=== PATIENT | male | born 1970 | race Caucasian/White ===

== ENCOUNTER 2017-12-01 16:35 | Inpatient (IN) | payer MEDICAID, MEDICARE ==
[~2017-12-01] VITALS: Ht 170.2 cm; Wt 98.0 kg
[2017-12-01 16:37] VITALS: BP 95/54; PULSE 112; RESP 25; TEMP 99.1; O2SAT 99
[2017-12-01] MEDS ORDERED: DIVA500T PO (17:22)
[2017-12-01] MEDS ORDERED: FISHCAP4 PO (17:22)
[2017-12-01] MEDS ORDERED: LOVA40TA PO (17:22)
[2017-12-01] MEDS ORDERED: RISP1TAB2 PO (17:22)
[2017-12-01] MEDS ORDERED: METF1000 PO (17:22)
[2017-12-01] MEDS ORDERED: DULO1CAP3 PO (17:22)
[2017-12-01] MEDS ORDERED: CENTTAB11 (17:22)
[2017-12-01] MEDS ORDERED: DICL1CAP4 PO (17:22)
[2017-12-01] MEDS ORDERED: TRAZ100T10 PO (17:22)
[2017-12-01] MEDS ORDERED: FENO160T PO (17:22)
[2017-12-01] MEDS ORDERED: SODIUM CHLOR 0.9% 1000 ML INJ 1,000 ML IV SCH ×2 (17:22→19:15)
[2017-12-01 17:25] VITALS: O2SAT 97
[2017-12-01] MEDS ORDERED: SODIUM CHLOR 0.9% 1000 ML INJ 1,000 ML IV ONE (17:30)
[2017-12-01] MEDS ORDERED: SODIUM CHLORIDE 0.9% FLUSH 10 ML FLUSH IV FLUSH PRN ×2 (17:30→19:30)
--- NOTE | 2017-12-01 17:30 | PD ---
Physical Exam Date Seen by Provider: Dec 01, 2017 Narrative Patient presents for the evaluation of a syncopal event, blow to the head and nausea and vomiting. He was reportedly out drinking with his friends until 5: 00 this morning. He did fall and strike his head. Since then, he has had persistent vomiting. He has a family member here with him he states that she took his blood pressure at home and noted below. She did attempt to treat him at home with oral hydration. He was unable to tolerate that. She subsequently brought him here for further evaluation. Data Data Last Documented VS Vital Signs Date Time Temp Pulse Resp B/P (MAP) Pulse Ox O2 Delivery O2 Flow Rate FiO2 12/01/17 17:25 97 Nasal Cannula 2.00 12/01/17 17:23 18 12/01/17 16:37 99.1 112 95/54 (68) Orders Orders Ct Brain W/O Iv Contrast(Rout) (12/01/17 ) Electrocardiogram (12/01/17 ) Electrocardiogram (12/01/17 17:22) Complete Blood Count With Diff (12/01/17 17:22) Comprehensive Metabolic Panel (12/01/17 17:22) Creatine Kinase (Cpk) (12/01/17 17:22) Prothrombin Time / Inr (Pt) (12/01/17 17:22) Act Partial Throm Time (Ptt) (12/01/17 17:22) Troponin I (12/01/17 17:22) Chest, Single Ap (12/01/17 17:22) Blood Glucose (12/01/17 17:22) Ecg Monitoring (12/01/17 17:22) Iv Access Insert/Monitor (12/01/17 17:22) Oximetry (12/01/17 17:22) Sodium Chloride 0.9% Flush (Ns Flush) (12/01/17 17:30) Sodium Chlor 0.9% 1000 Ml Inj (Ns 1000 M (12/01/17 17:22) Sodium Chlor 0.9% 1000 Ml Inj (Ns 1000 M (12/01/17 17:30) MDM Supervised Visit with DARRYL: Yes Interpretation(s) EKG shows a sinus tach with ventricular rate of 103. I do not see any significant ST segment elevation. Narrative Course I, Dr. Sapp, have reviewed the advance practice practitioner's documentation and am in agreement, met with the patient face to face, made the diagnosis, and the medical decision making was done by me. *My assessment and Findings: Patient is awake and alert. Systolic blood pressure is about 90. He does not have any obvious injury to his head such as a contusion or laceration. He is being evaluated for both syncope and head injury. He is being treated with IV fluids. Please see Faboila Matson NP's note for results of laboratory and radiographic evaluation, ED course, final diagnosis and disposition Yaa Sapp MD Dec 01, 2017 17:30
--- NOTE | 2017-12-01 17:37 | PD ---
HPI Chief Complaint: Syncope/Near-Syncope Time Seen by Provider: 17:22 Travel History International Travel<30 days: No Contact w/Intl Traveler<30days: No Traveled to known affect area: No History of Present Illness HPI Patient is a 47-year-old male presenting to the emergency department for evaluation after syncopal episode. Episode occurred approximately 1 hour prior to arrival. Significant other is at bedside and states that she noticed that he was laying on the ground next to the car. She reported that she checked his blood pressure at home and his systolic was in the 60s. Patient reports that prior to passing ago he felt his vision gets very bright and he felt dizzy. He denies any headache, chest pain, shortness of breath. After the episode he vomited, felt disoriented and girlfriend states he was asking the same question repetitively. Patient admits to drinking alcohol all night until approximately 5 AM. He states that he felt well prior to that. He has a history of bipolar disorder, type 2 diabetes, hyperlipidemia. He is a tobacco user, he states he smokes cigars. Symptom onset was sudden, symptoms severity is moderate to severe, there are no alleviating factors. PFSH Past Medical History High Cholesterol: Yes Diabetes: Yes Social History Alcohol Use: Yes Tobacco Use: Yes Allergies-Medications (Allergen,Severity, Reaction): Coded Allergies: Penicillins (Verified Allergy, Severe, 12/01/17) Reported Meds & Prescriptions Reported Meds & Active Scripts Active Reported Zorvolex (Diclofenac) 35 Mg Cap 75 Mg PO DAILY Trazodone (Trazodone HCl) 100 Mg Tablet 100 Mg PO HS Duloxetine DR (Duloxetine HCl) 60 Mg Capdr 60 Mg PO DAILY Lovastatin 40 Mg Tab 40 Mg PO DAILY Fenofibrate 160 Mg Tab 160 Mg PO DAILY Risperidone 1 Mg Tab 1 Mg PO DAILY Divalproex DR (Divalproex Sodium) 500 Mg Tabdr 500 Mg PO BID Metformin (Metformin HCl) 1,000 Mg Tab 1,000 Mg PO BIDPC Centrum Complete Multivit Tab (Multivitamin/Iron/Folic Acid) 18 Mg Iron-400 Mcg Tablet Fish Oil + D3 (Fish Oil-Cholecalciferol) 1,200-1,000 Mg-Unit Cap 1 Cap PO DAILY Review of Systems Except as stated in HPI: all other systems reviewed are Neg Eyes: Positive: Blurred Vision HENT: Positive: Headaches Cardiovascular: No: Chest Pain or Discomfort Respiratory: No: Shortness of Breath Gastrointestinal: Positive: Nausea, Vomiting, No: Abdominal Pain Neurologic: Positive: Dizziness, Syncope, No: Coordination Problem, Slurred Speech Physical Exam Narrative GENERAL: Overweight, well-developed, alert male. Presenting in no acute distress. SKIN: Warm and dry. HEAD: Atraumatic. Normocephalic. EYES: Pupils equal and round. No scleral icterus. No injection or drainage. Extraocular movements are intact. ENT: No nasal bleeding or discharge. Mucous membranes pink and moist. NECK: Trachea midline. No JVD. CARDIOVASCULAR: Tachycardic RESPIRATORY: No accessory muscle use. Expiratory wheezes noted in bases bilaterally. GASTROINTESTINAL: Abdomen soft, non-tender, nondistended. Hepatic and splenic margins not palpable. Positive bowel sounds, no rebound, no guarding. MUSCULOSKELETAL: Extremities without clubbing, cyanosis, or edema. No obvious deformities. NEUROLOGICAL: Awake and alert. No obvious cranial nerve deficits. Motor grossly within normal limits. Five out of 5 muscle strength in the arms and legs. Normal speech. PSYCHIATRIC: Appropriate mood and affect; insight and judgment normal. Data Data Last Documented VS Vital Signs Date Time Temp Pulse Resp B/P (MAP) Pulse Ox O2 Delivery O2 Flow Rate FiO2 12/01/17 18:26 106 18 104/53 (70) 97 18 94/50 (65) 12/01/17 17:25 97 Nasal Cannula 2.00 12/01/17 16:[address] Brain W/O Iv Contrast(Rout) (12/01/17 ) Electrocardiogram (12/01/17 ) Electrocardiogram (12/01/17 17:) Complete Blood Count With Diff (12/01/17 17:) Comprehensive Metabolic Panel (12/01/17 17:) Creatine Kinase (Cpk) (12/01/17 17:22) Prothrombin Time / Inr (Pt) (12/01/17 17:) Act Partial Throm Time (Ptt) (12/01/17 17:) Troponin I (12/01/17 17:) Chest, Single Ap (12/01/17 17:22) Blood Glucose (12/01/17 17:22) Ecg Monitoring (12/01/17 17:) Iv Access Insert/Monitor (12/01/17 17:22) Oximetry (12/01/17 17:22) Sodium Chloride 0.9% Flush (Ns Flush) (12/01/17 17:30) Sodium Chlor 0.9% 1000 Ml Inj (Ns 1000 M (12/01/17 17:22) Sodium Chlor 0.9% 1000 Ml Inj (Ns 1000 M (12/01/17 17:30) Orthostatic Vital Signs (12/01/17 18:04) CKMB (12/01/17 17:32) CKMB% (12/01/17 17:32) Sodium Chlor 0.9% 1000 Ml Inj (Ns 1000 M (12/01/17 19:15) Admit Order (Ed Use Only) (12/01/17 19:20) Labs Laboratory Tests Test 12/01/17 17:32 White Blood Count 13.9 TH/MM3 Red Blood Count 3.99 MIL/MM3 Hemoglobin 13.1 GM/DL Hematocrit 36.2 % Mean Corpuscular Volume 90.6 FL Mean Corpuscular Hemoglobin 32.8 PG Mean Corpuscular Hemoglobin Concent 36.1 % Red Cell Distribution Width 14.0 % Platelet Count 165 TH/MM3 Mean Platelet Volume 7.6 FL Neutrophils (%) (Auto) 81.8 % Lymphocytes (%) (Auto) 7.5 % Monocytes (%) (Auto) 10.2 % Eosinophils (%) (Auto) 0.3 % Basophils (%) (Auto) 0.2 % Neutrophils # (Auto) 11.4 TH/MM3 Lymphocytes # (Auto) 1.0 TH/MM3 Monocytes # (Auto) 1.4 TH/MM3 Eosinophils # (Auto) 0.0 TH/MM3 Basophils # (Auto) 0.0 TH/MM3 CBC Comment DIFF FINAL Differential Comment Prothrombin Time 10.7 SEC Prothromb Time International Ratio 1.1 RATIO Activated Partial Thromboplast Time 26.4 SEC Blood Urea Nitrogen 6 MG/DL Creatinine 1.69 MG/DL Random Glucose 93 MG/DL Total Protein 7.4 GM/DL Albumin 3.6 GM/DL Calcium Level 8.2 MG/DL Alkaline Phosphatase 53 U/L Aspartate Amino Transf (AST/SGOT) 121 U/L Alanine Aminotransferase (ALT/SGPT) 99 U/L Total Bilirubin 1.0 MG/DL Sodium Level 112 MEQ/L Potassium Level 3.6 MEQ/L Chloride Level 72 MEQ/L Carbon Dioxide Level 21.3 MEQ/L Anion Gap 19 MEQ/L Estimat Glomerular Filtration Rate 43 ML/MIN Total Creatine Kinase 1177 U/L Creatine Kinase MB 24.6 NG/ML Creatine Kinase MB % 2.1 % Troponin I LESS THAN 0.02 NG/ML MDM Medical Decision Making Medical Screen Exam Complete: Yes Emergency Medical Condition: Yes Interpretation(s) Laboratory Tests Test 12/01/17 17:32 White Blood Count 13.9 TH/MM3 Red Blood Count 3.99 MIL/MM3 Hemoglobin 13.1 GM/DL Hematocrit 36.2 % Mean Corpuscular Volume 90.6 FL Mean Corpuscular Hemoglobin 32.8 PG Mean Corpuscular Hemoglobin Concent 36.1 % Red Cell Distribution Width 14.0 % Platelet Count 165 TH/MM3 Mean Platelet Volume 7.6 FL Neutrophils (%) (Auto) 81.8 % Lymphocytes (%) (Auto) 7.5 % Monocytes (%) (Auto) 10.2 % Eosinophils (%) (Auto) 0.3 % Basophils (%) (Auto) 0.2 % Neutrophils # (Auto) 11.4 TH/MM3 Lymphocytes # (Auto) 1.0 TH/MM3 Monocytes # (Auto) 1.4 TH/MM3 Eosinophils # (Auto) 0.0 TH/MM3 Basophils # (Auto) 0.0 TH/MM3 CBC Comment DIFF FINAL Differential Comment Prothrombin Time 10.7 SEC Prothromb Time International Ratio 1.1 RATIO Activated Partial Thromboplast Time 26.4 SEC Blood Urea Nitrogen 6 MG/DL Creatinine 1.69 MG/DL Random Glucose 93 MG/DL Total Protein 7.4 GM/DL Albumin 3.6 GM/DL Calcium Level 8.2 MG/DL Alkaline Phosphatase 53 U/L Aspartate Amino Transf (AST/SGOT) 121 U/L Alanine Aminotransferase (ALT/SGPT) 99 U/L Total Bilirubin 1.0 MG/DL Sodium Level 112 MEQ/L Potassium Level 3.6 MEQ/L Chloride Level 72 MEQ/L Carbon Dioxide Level 21.3 MEQ/L Anion Gap 19 MEQ/L Estimat Glomerular Filtration Rate 43 ML/MIN Total Creatine Kinase 1177 U/L Troponin I LESS THAN 0.02 NG/ML Vital Signs Date Time Temp Pulse Resp B/P (MAP) Pulse Ox O2 Delivery O2 Flow Rate FiO2 12/01/17 17:25 97 Nasal Cannula 2.00 12/01/17 17:23 18 96 3/11/18 16:37 99.1 112 25 95/54 (76) 99 Differential Diagnosis Contusion versus concussion versus hemorrhage versus cardiac arrhythmia versus metabolic abnormality versus dehydration versus other Narrative Course Patient presented for evaluation after syncopal episode. Patient is hypotensive on arrival. No focal deficits noted on exam. Labs and imaging ordered and pending. 2 L of IV fluids ordered. IV access established, patient placed on telemetry monitoring continuous pulse oximetry. Initial EKG which was reviewed by my attending physician shows sinus tachycardia with a rate of 103. Chest x-ray is negative for any acute abnormality Head CT shows no acute changes CBC with white blood cell count at 13.9 with left shift Chemistry with a sodium of 112, BUN and creatinine 6/1.69, anion gap 19. CK 1177, AST ALT 121/99 Patient is received a total of 2 L of IV fluids, 1/3 L at 125 mL an hour has been ordered. Patient remains hemodynamically stable at this point. He was reassessed and has no complaints. Friends and family at bedside. He was made aware of all findings. He then confessed to drinking alcohol on a daily basis. He states he has a few beers a day. Discussed with Dr. Gooden. Admit orders placed. Discontinued NS infusion to avoid correcting Na+ to quickly after discussing with Dr. Gooden. Diagnosis Primary Impression: Syncope Qualified Codes: R55 - Syncope and collapse Additional Impressions: Hyponatremia Acute renal insufficiency Rhabdomyolysis Qualified Codes: M62.82 - Rhabdomyolysis Admitting Information Admitting Physician Requests: Admit Condition: Stable Fabiola Garza Dec 01, 2017 17:37
[2017-12-01 17:43] LABS: AUTOMATED NEUTROPHIL # 11.4 TH/MM3 (1.8-7.7); BASOPHIL % 0.2 % (0.0-2.0); EOSINOPHIL % 0.3 % (0.0-4.0); HEMATOCRIT 36.2 % (39.0-51.0); HEMOGLOBIN 13.1 GM/DL (13.0-17.0); LYMPH % 7.5 % (9.0-44.0); MEAN CELL VOLUME 90.6 FL (80.0-100.0); MEAN CORPUSCULAR HEMOGLOBIN 32.8 PG (27.0-34.0); MEAN PLATELET VOLUME 7.6 FL (7.0-11.0); MONO % 10.2 % (0.0-8.0); MONOCYTE # 1.4 TH/MM3 (0-0.9); NEUT % 81.8 % (16.0-70.0); PLATELET COUNT 165 TH/MM3 (150-450); RED BLOOD COUNT 3.99 MIL/MM3 (4.50-5.90); WHITE BLOOD COUNT 13.9 TH/MM3 (4.0-11.0)
--- NOTE | 2017-12-01 17:51 | RADRPT ---
EXAM DATE/TIME: 12/01/2017 17:43 [facility] COMPARISON: No previous studies available for comparison. INDICATIONS : Fall, hit head, confused and vomiting. RADIATION DOSE: 56.35 CTDIvol (mGy) MEDICAL HISTORY : None SURGICAL HISTORY : None. ENCOUNTER: Initial ACUITY: 1 day PAIN SCALE: 0/10 LOCATION: cranial TECHNIQUE: Multiple contiguous axial images were obtained of the head. Using automated exposure control and adj ustment of the mA and/or kV according to patient size, radiation dose was kept as low as reasonably a chievable to obtain optimal diagnostic quality images. DICOM format image data is available electro nically for review and comparison. FINDINGS: CEREBRUM: The ventricles are normal for age. No evidence of midline shift, mass lesion, hemorrhage or acute in farction. No extra-axial fluid collections are seen. POSTERIOR FOSSA: The cerebellum and brainstem are intact. The 4th ventricle is midline. The cerebellopontine angle i s unremarkable. EXTRACRANIAL: The visualized portion of the orbits is intact. SKULL: The calvaria is intact. No evidence of skull fracture. CONCLUSION: 1. No acute intracranial abnormalities. Bong Bradford MD on December 01, 2017 at 17:48 Board Certified Radiologist. This report was verified electronically.
[2017-12-01 17:52] LABS: INTERNATIONAL NORMALIZED RATIO 1.1 RATIO; MEAN CORPUSCULAR HGB CONC 36.1 % (32.0-36.0); PROTHROMBIN TIME - PATIENT 10.7 SEC (9.8-11.6)
--- NOTE | 2017-12-01 17:53 | RADRPT ---
EXAM DATE/TIME: 12/01/2017 17:35 [facility] COMPARISON: No previous studies available for comparison. INDICATIONS : Syncopal episode, Short of Breath MEDICAL HISTORY : None. SURGICAL HISTORY : None. ENCOUNTER: Initial ACUITY: 1 day PAIN SCORE: 0/10 LOCATION: chest FINDINGS: A single view of the chest demonstrates the lungs to be symmetrically aerated without evidence of mas s, infiltrate or effusion. No evidence of pneumothorax. The cardiomediastinal contours are unremark able. Osseous structures are intact. CONCLUSION: The lungs are clear. John Jenkins MD on December 01, 2017 at 17:51 Board Certified Radiologist. This report was verified electronically.
[2017-12-01 18:26] VITALS: BP_SYST 104; BP_SYST 94; BP_DIAS 50; BP_DIAS 53; RESP 18
[2017-12-01 18:43] LABS: ALBUMIN 3.6 GM/DL (3.4-5.0); ALKALINE PHOSPHATASE 53 U/L (45-117); ALT (GPT) 99 U/L (12-78); AST (GOT) 121 U/L (15-37); BICARBONATE 21.3 MEQ/L (21.0-32.0); BLOOD UREA NITROGEN 6 MG/DL (7-18); CALCIUM 8.2 MG/DL (8.5-10.1); CHLORIDE 72 MEQ/L (98-107); CREATININE 1.69 MG/DL (0.60-1.30); GLOMERULAR FILTRATION RATE 43 ML/MIN (>89); GLUCOSE,RANDOM 93 MG/DL (74-106); TOTAL PROTEIN 7.4 GM/DL (6.4-8.2); TROPONIN I LESS THAN 0.02 NG/ML (0.02-0.05)
[2017-12-01 18:47] LABS: SODIUM (NA) 112 MEQ/L (136-145)
--- NOTE | 2017-12-01 19:25 | HHI.HP ---
[facility] Unknown Admission Diagnosis HYPONATREMIA, SYNCOPE, NOÉ Diagnoses: (1) Syncope Diagnosis: Principal (2) Alcohol abuse Diagnosis: Principal (3) Hyponatremia Diagnosis: Principal (4) Rhabdomyolysis Diagnosis: Principal (5) NOÉ (acute kidney injury) Diagnosis: Principal (6) DM (diabetes mellitus) Diagnosis: Principal Travel History International Travel<30 Days: No Contact w/Intl Traveler <30 Da: No Traveled to Known Affected Are: No History of Present Illness This is a 47-year-old male with a PMH of Hyperlipidemia, DM and Alcohol Abuse was brought here by EMS secondary to apparent syncopal episode. Friends at bedside report patient had sudden onset of syncope earlier today. Friends state patient had been out drinking all night last night. Similar episode approx 2 days ago where pt "was out of it" and noted to have hands clenched. Did not seek medical attention at that time. Denies h/o Seizure, however on Divalproex 500mg bid per review of med list. Does admit to drinking approx 6- 12 beers "maybe more" per day, but denies withdrawal symptoms. On arrival, BP 95/54, HR 112, O2 sat 99% on RA, Temp 99.1. CBC 13.9. Na 112. Creatinine 1.69 no previous labs for comparison. CPK 1177. Troponin negative. INR 1.1. UA negative. CXR with no acute findings. CT Head negative. S/p IVF in ER, no further episodes of syncope/seizure in ER. Review of Systems Except as stated in HPI: all other systems reviewed are Neg ROS: 14 point review of systems otherwise negative. Past Family Social History Past Medical History PMH: Hyperlipidemia, DM and Alcohol Abuse Past Surgical History PAST SURGICAL HISTORY: None Allergies: Coded Allergies: Penicillins (Verified Allergy, Severe, 12/01/17) Family History PAST FAMILY HISTORY: Reviewed. No h/o DM or CAD Social History PAST SOCIAL HISTORY: Drinks 6-12 beers daily. Positive for tobacco. Denies drugs. Physical Exam Vital Signs Vital Signs Date Time Temp Pulse Resp B/P (MAP) Pulse Ox O2 Delivery O2 Flow Rate FiO2 12/01/17 18:26 106 18 104/53 (70) 97 18 94/50 (65) 12/01/17 17:25 97 Nasal Cannula 2.00 12/01/17 17:23 78 18 96 12/01/17 16:37 99.1 112 25 95/54 (68) 99 Physical Exam PE: GENERAL: Middle-aged male in no acute distress. Friends at bedside. HEENT: PERRLA, EOMI. No scleral icterus or conjunctival pallor. No lid lag or facial droop. CARDIOVASCULAR: Regular rate and rhythm. No obvious murmurs to auscultation. No chest tenderness to palpation. RESPIRATORY: No obvious rhonchi or wheezing. Clear to auscultation. Breath sounds equal bilaterally. GASTROINTESTINAL: Abdomen soft, non-tender, nondistended. BS normal. MUSCULOSKELETAL: Extremities without clubbing, cyanosis, or edema. No obvious deformities. NEUROLOGICAL: Awake, alert and oriented x4. No focal neurologic deficits. Moving both upper and lower extremities spontaneously. Laboratory Laboratory Tests Test 12/01/17 17:32 White Blood Count 13.9 Red Blood Count 3.99 Hemoglobin 13.1 Hematocrit 36.2 Mean Corpuscular Volume 90.6 Mean Corpuscular Hemoglobin 32.8 Mean Corpuscular Hemoglobin Concent 36.1 Red Cell Distribution Width 14.0 Platelet Count 165 Mean Platelet Volume 7.6 Neutrophils (%) (Auto) 81.8 Lymphocytes (%) (Auto) 7.5 Monocytes (%) (Auto) 10.2 Eosinophils (%) (Auto) 0.3 Basophils (%) (Auto) 0.2 Neutrophils # (Auto) 11.4 Lymphocytes # (Auto) 1.0 Monocytes # (Auto) 1.4 Eosinophils # (Auto) 0.0 Basophils # (Auto) 0.0 CBC Comment DIFF FINAL Differential Comment Prothrombin Time 10.7 Prothromb Time International Ratio 1.1 Activated Partial Thromboplast Time 26.4 Blood Urea Nitrogen 6 Creatinine 1.69 Random Glucose 93 Total Protein 7.4 Albumin 3.6 Calcium Level 8.2 Alkaline Phosphatase 53 Aspartate Amino Transf (AST/SGOT) 121 Alanine Aminotransferase (ALT/SGPT) 99 Total Bilirubin 1.0 Sodium Level 112 Potassium Level 3.6 Chloride Level 72 Carbon Dioxide Level 21.3 Anion Gap 19 Estimat Glomerular Filtration Rate 43 Total Creatine Kinase 1177 Creatine Kinase MB 24.6 Creatine Kinase MB % 2.1 Troponin I LESS THAN 0.02 Result Diagram: 12/01/17173112/01/171731 Caprini VTE Risk Assessment Caprini VTE Risk Assessment: No/Low Risk (score <= 1) Caprini Risk Assessment Model Point Value = 1 Point Value = 2 Point Value = 3 Point Value = 5 Age 41-60 Minor surgery BMI > 25 kg/m2 Swollen legs Varicose veins or History of unexplained or recurrent spontaneous Oral contraceptives or hormone replacement Sepsis (< 1 month) Serious lung disease, including pneumonia (< 1 month) Abnormal pulmonary function Acute myocardial infarction Congestive heart failure (< 1 month) History of inflammatory bowel disease Medical patient at bed rest Age 61-74 Arthroscopic surgery Major open surgery (> 45 min) Laparoscopic surgery (> 45 min) Malignancy Confined to bed (> 72 hours) Immobilizing plaster cast Central venous access Age >= 75 History of VTE Family history of VTE Factor V Leiden Prothrombin [id number] Lupus anticoagulant Anticardiolipin antibodies Elevated serum homocysteine Heparin-induced thrombocytopenia Other congenital or acquired thrombophilia Stroke (< 1 month) Elective arthroplasty Hip, pelvis, or leg fracture Acute spinal cord injury (< 1 month) Prophylaxis Regimen Total Risk Factor Score Risk Level Prophylaxis Regimen 0-1 Low Early ambulation 2 Moderate Order ONE of the following: *Sequential Compression Device (SCD) *Heparin 5000 units SQ BID 3-4 Higher Order ONE of the following medications: *Heparin 5000 units SQ TID *Enoxaparin/Lovenox 40 mg SQ daily (WT < 150 kg, CrCl > 30 mL/min) *Enoxaparin/Lovenox 30 mg SQ daily (WT < 150 kg, CrCl > 10-29 mL/min) *Enoxaparin/Lovenox 30 mg SQ BID (WT < 150 kg, CrCl > 30 mL/min) AND/OR *Sequential Compression Device (SCD) 5 or more Highest Order ONE of the following medications: *Heparin 5000 units SQ TID (Preferred with Epidurals) *Enoxaparin/Lovenox 40 mg SQ daily (WT < 150 kg, CrCl > 30 mL/min) *Enoxaparin/Lovenox 30 mg SQ daily (WT < 150 kg, CrCl > 10-29 mL/min) *Enoxaparin/Lovenox 30 mg SQ BID (WT < 150 kg, CrCl > 30 mL/min) AND *Sequential Compression Device (SCD) Assessment and Plan Problem List: (1) Syncope ICD Code: R55 - Syncope and collapse Status: Acute (2) Hyponatremia ICD Code: E87.1 - Hypo-osmolality and hyponatremia Status: Acute (3) Rhabdomyolysis ICD Code: M62.82 - Rhabdomyolysis Status: Acute (4) NOÉ (acute kidney injury) ICD Code: N17.9 - Acute kidney failure, unspecified (5) DM (diabetes mellitus) ICD Code: E11.9 - Type 2 diabetes mellitus without complications (6) Alcohol abuse ICD Code: F10.10 - Alcohol abuse, uncomplicated Assessment and Plan A/P: 1. Syncope: vs Seizure. Noted to have syncopal event and questionable seizure -like activity by friends. Denies h/o seizure however on Divalproex per review of medication list. Admit for close monitoring, Seizure Precautions, Ativan prn , Consult Neurology as needed for further recommendations. CT Head w/ no acute findings, images reviewed by me. Ordered Urine Drug Screen....positive for Cocaine, likely contributing to seizure in combination w/ hyponatremia. Check EEG. Resume Divalproex 500mg bid. 2. Hyponatremia: Na 112, baseline unknown, h/o chronic alcohol abuse likely contributing to hyponatremia in addition to dehydration. S/p 2L IVF in ER, caution w/ over correction, check repeat Sodium, Serum Osm, Urine Lytes. 3. Rhabdomyolysis: CPK 1177, likely secondary to Cocaine. IVF for hydration, repeat CPK for trend. 4. NOÉ: Creatinine 1.69, no previous labs for comparison, presumably new, likely secondary to dehydration in combination with Cocaine. IVF for hydration , repeat labs in a.m. 5. Alcohol Abuse: Drinks 6-12 beers/day, denies withdrawal symptoms but high risk. CIWA, Seizure Precautions, MVT/Thiamine/Folate. 6. DM: Hold Metformin for now. Sliding scale w/ Accu-Checks. 7. DVT Prophylaxis: SCD/Teds. 8. Social work for d/c planning as needed. 9. Case discussed w/ ER physician at length, labs/records/imaging reviewed by me. Physician Certification 2 Midnight Certification Type: Admission for Inpatient Services Order for Inpatient Services The services are ordered in accordance with Medicare regulations or non- Medicare payer requirements, as applicable. In the case of services not specified as inpatient-only, they are appropriately provided as inpatient services in accordance with the 2-midnight benchmark. Estimated LOS (days): 2 days is the estimated time the patient will need to remain in the hospital, assuming treatment plan goals are met and no additional complications. Post-Hospital Plan: Not yet determined Problem Qualifiers (1) Syncope: Qualified Codes: R55 - Syncope and collapse (2) Rhabdomyolysis: Qualified Codes: M62.82 - Rhabdomyolysis Purnima Gooden MD Dec 01, 2017 19:25
[2017-12-01] MEDS ORDERED: LORazepam 2 MG/ML VIAL IV PUSH PRN ×4 (19:30)
[2017-12-01] MEDS ORDERED: LORazepam 1 MG TAB PO PRN (19:30)
[2017-12-01] MEDS ORDERED: ACETAMINOPHEN 325 MG TAB PO PRN (19:30)
[2017-12-01] MEDS ORDERED: BISACODYL 10 MG SUPP RECTAL PRN (19:30)
[2017-12-01] MEDS ORDERED: LACTULOSE SYRUP 20 GM/30 ML CUP PO PRN (19:30)
[2017-12-01] MEDS ORDERED: MAGNESIUM HYDROXIDE SUSP 30 ML CUP PO PRN (19:30)
[2017-12-01] MEDS ORDERED: FLUMAZENIL 0.5 MG/5 ML VIAL IV PUSH PRN (19:30)
[2017-12-01] MEDS ORDERED: HALOPERIDOL LACTATE 5 MG/ML AMP IM PRN (19:30)
[2017-12-01] MEDS ORDERED: LORazepam 2 MG TAB PO PRN (19:30)
[2017-12-01] MEDS ORDERED: SENNOSIDES 8.6 MG TAB PO PRN (19:30)
[2017-12-01] MEDS ORDERED: ONDANSETRON HCL 4 MG/2 ML VIAL IVP PRN (19:30)
[2017-12-01] MEDS: DOCUSATE SODIUM 50 MG/SENNA 8.6 MG TAB PO SCH (21:00)
[2017-12-01 21:10] LABS: BILIRUBIN, URINE NEG (NEG); BLOOD, URINE TRACE (NEG); GLUCOSE,URINE NEG (NEG); KETONE, URINE NEG (NEG); NITRITE,URINE NEG (NEG); PH, URINE 6.5 (5.0-8.5); URINE COLOR LIGHT-YELLOW (YELLW/STRAW); URINE LEUKOCYTE ESTERASE NEG (NEG)
[2017-12-02] VITALS (8 sets, daily range): BP systolic 107–178; BP diastolic 59–83; PULSE 88–107; RESP 16–20; TEMP 97.3–98.6; O2SAT 94–96
[2017-12-02 01:14] LABS: TROPONIN I LESS THAN 0.02 NG/ML (0.02-0.05)
[2017-12-02 01:19] LABS: SODIUM (NA) 117 MEQ/L (136-145)
[2017-12-02 01:47] LABS: SODIUM,RANDOM URINE 16 MEQ/L
[2017-12-02] MEDS: SODIUM CHLOR 0.9% 1000 ML INJ 1,000 ML IV SCH ×2 (02:04→22:01)
[2017-12-02] MEDS: SODIUM CHLORIDE 0.9% FLUSH 10 ML FLUSH IV FLUSH SCH ×3 (02:05→21:00)
[2017-12-02 08:54] LABS: AUTOMATED NEUTROPHIL # 3.6 TH/MM3 (1.8-7.7); BASOPHIL % 0.2 % (0.0-2.0); EOSINOPHIL # 0.1 TH/MM3 (0-0.4); EOSINOPHIL % 1.6 % (0.0-4.0); HEMATOCRIT 33.4 % (39.0-51.0); LYMPH % 19.5 % (9.0-44.0); LYMPHOCYTE # 1.1 TH/MM3 (1.0-4.8); MEAN CELL VOLUME 91.5 FL (80.0-100.0); MEAN CORPUSCULAR HEMOGLOBIN 32.8 PG (27.0-34.0); MEAN CORPUSCULAR HGB CONC 35.8 % (32.0-36.0); MEAN PLATELET VOLUME 7.8 FL (7.0-11.0); MONO % 16.2 % (0.0-8.0); MONOCYTE # 0.9 TH/MM3 (0-0.9); NEUT % 62.5 % (16.0-70.0); PLATELET COUNT 124 TH/MM3 (150-450); RED BLOOD COUNT 3.65 MIL/MM3 (4.50-5.90); RED CELL DISTRIBUTION WIDTH 13.8 % (11.6-17.2); WHITE BLOOD COUNT 5.7 TH/MM3 (4.0-11.0)
[2017-12-02] MEDS: DOCUSATE SODIUM 50 MG/SENNA 8.6 MG TAB PO SCH ×2 (09:00→22:01)
--- NOTE | 2017-12-02 09:13 | HHI.PR ---
Subjective Remarks The patient is in bed sleepy. Has no chest pain or shortness of breath, no palpitations. No tremors. No seizures overnight. Denies abdominal cramps, muscle pain. Fairly well no nausea or vomiting diarrhea or constipation. He is drinking more now because of the bike week. Since he had sodium low before. He is alert and oriented. No confusion. Eating fairly well. Objective Vitals Vital Signs Date Time Temp Pulse Resp B/P (MAP) Pulse Ox O2 Delivery O2 Flow Rate FiO2 12/02/17 08:52 97.6 100 16 118/65 (82) 96 12/02/17 03:58 97.7 103 20 114/64 (81) 95 12/02/17 02:49 88 12/02/17 00:06 97.8 104 18 111/59 (76) 95 12/01/17 21:05 12/01/17 18:26 106 18 104/53 (70) 97 18 94/50 (65) 12/01/17 17:25 97 Nasal Cannula 2.00 12/01/17 17:23 78 18 96 12/01/17 16:37 99.1 112 25 95/54 (68) 99 Result Diagram: 12/02/17 0657 12/02/17 0002 Imaging Last Impressions Chest X-Ray 12/01/17 1722 Signed Impressions: Service Date/Time: Friday, December 01, 2017 17:35 - CONCLUSION: The lungs are clear. John Jenkins MD Head CT 12/01/17 0000 Signed Impressions: Service Date/Time: Friday, December 01, 2017 17:43 - CONCLUSION: 1. No acute intracranial abnormalities. Bong Bradford MD Objective Remarks GENERAL: Middle-aged male in no acute distress. Friends at bedside. HEENT: PERRLA, EOMI. No scleral icterus or conjunctival pallor. No lid lag or facial droop. CARDIOVASCULAR: Regular rate and rhythm. No obvious murmurs to auscultation. No chest tenderness to palpation. RESPIRATORY: No obvious rhonchi or wheezing. Clear to auscultation. Breath sounds equal bilaterally. GASTROINTESTINAL: Abdomen soft, non-tender, nondistended. BS normal. MUSCULOSKELETAL: Extremities without clubbing, cyanosis, or edema. No obvious deformities. NEUROLOGICAL: Awake, alert and oriented x4. No focal neurologic deficits. Moving both upper and lower extremities spontaneously. A/P Problem List: (1) Syncope ICD Code: R55 - Syncope and collapse Status: Acute (2) Hyponatremia ICD Code: E87.1 - Hypo-osmolality and hyponatremia Status: Acute (3) Rhabdomyolysis ICD Code: M62.82 - Rhabdomyolysis Status: Acute (4) NOÉ (acute kidney injury) ICD Code: N17.9 - Acute kidney failure, unspecified (5) DM (diabetes mellitus) ICD Code: E11.9 - Type 2 diabetes mellitus without complications (6) Alcohol abuse ICD Code: F10.10 - Alcohol abuse, uncomplicated Assessment and Plan 47-year-old male with Syncope: vs Seizure. Noted to have syncopal event and questionable seizure- like activity by friends. Denies h/o seizure however on Divalproex per review of medication list. Admit for close monitoring, Seizure Precautions, Ativan prn , Consult Neurology as needed for further recommendations. CT Head w/ no acute findings, images reviewed by me. Ordered Urine Drug Screen....positive for Cocaine, likely contributing to seizure in combination w/ hyponatremia. Check EEG. Resume Divalproex 500mg bid. Hyponatremia: Na 112 on admission, baseline unknown, h/o chronic alcohol abuse likely contributing to hyponatremia in addition to dehydration. S/p 2L IVF in ER, caution w/ over correction, check repeat Sodium, Serum Osm, Urine Lytes. Repeat NA at 117 monitor for overcorrection Rhabdomyolysis: CPK 1177, likely secondary to Cocaine. IVF for hydration, repeat CPK for trend. NOÉ: Creatinine 1.69, no previous labs for comparison, presumably new, likely secondary to dehydration in combination with Cocaine. IVF for hydration, repeat labs in a.m. Alcohol Abuse: Drinks 6-12 beers/day, denies withdrawal symptoms but high risk. CIWA, Seizure Precautions, MVT/Thiamine/Folate. DM2: Hold Metformin for now. Sliding scale w/ Accu-Checks. DVT Prophylaxis: SCD/Teds. Discussed with the patient, nurse Discharge plan: Pending improvement, monitor sodium for fast correction, monitor for alcohol withdrawals, discharge when improved Problem Qualifiers (1) Syncope: Qualified Codes: R55 - Syncope and collapse (2) Rhabdomyolysis: Qualified Codes: M62.82 - Rhabdomyolysis Cecilia Bowles MD Dec 02, 2017 09:13
[2017-12-02] MEDS: FOLIC ACID 1 MG TAB PO SCH (09:22)
[2017-12-02] MEDS: risperiDONE 1 MG TAB PO SCH (09:22)
[2017-12-02] MEDS: MULTIVITAMINS/MINERALS THERAPEUTIC TAB PO SCH (09:22)
[2017-12-02] MEDS: THIAMINE HCL 100 MG TAB PO SCH (09:22)
[2017-12-02] MEDS: DULoxetine HCl DR 60 MG CAP PO SCH (09:22)
[2017-12-02] MEDS: DIVALPROEX DR 500 MG TABEC PO SCH ×2 (09:23→22:01)
[2017-12-02 09:27] LABS: ALBUMIN 3.3 GM/DL (3.4-5.0); ALKALINE PHOSPHATASE 47 U/L (45-117); ALT (GPT) 77 U/L (12-78); AST (GOT) 78 U/L (15-37); BLOOD UREA NITROGEN 12 MG/DL (7-18); CHLORIDE 81 MEQ/L (98-107); CREATININE 1.44 MG/DL (0.60-1.30); GLOMERULAR FILTRATION RATE 52 ML/MIN (>89); GLUCOSE,RANDOM 67 MG/DL (74-106); TOTAL BILIRUBIN ADULT 1.3 MG/DL (0.2-1.0); TOTAL PROTEIN 6.7 GM/DL (6.4-8.2); TROPONIN I LESS THAN 0.02 NG/ML (0.02-0.05)
[2017-12-02 09:45] LABS: SODIUM (NA) 121 MEQ/L (136-145)
--- NOTE | 2017-12-02 13:51 | MB ---
cc: Awa Moses MD DATE OF CONSULT: 12/02/2017 DATE OF : 1970 AGE: [age] years old. REASON FOR CONSULTATION: Seizure. HISTORY OF PRESENT ILLNESS: The patient is a 47-year-old male with a history of hyperlipidemia, diabetes, chronic alcohol use who comes in with a syncopal spell. Apparently he had been drinking last night and they went to [employer]. On the way home from [employer], as he was coming home and opened the car door, he had syncope versus a seizure. He was somewhat postictal or confused afterwards. He denies any history of epilepsy and/or seizures. Apparently at some point in time he was on Depakote in the past. He does have a history of drinking 6 to 12 beers, maybe sometimes more, but no alcohol withdrawal symptoms were ever noted. ALLERGIES: PENICILLIN. FAMILY HISTORY: Noncontributory. SOCIAL HISTORY: Drinks heavily daily. Smokes. Denies drugs per chart. PHYSICAL EXAMINATION: VITAL SIGNS: Temperature 98.6, heart rate 107, respiratory rate 18, blood pressure 126/66, sating at 96%. NECK: Supple. HEART: Regular. NEUROLOGICAL EXAMINATION: He is awake and alert. He is oriented and fluent. Pupils are reactive. Face symmetrical. Tongue in midline. Motor: I do not see any tremors. No drift, no leg lag. Cerebellar: Normal. Toes downgoing. DTRs: Symmetrical. Gait is withheld. LABORATORY DATA: Reviewed. His white count yesterday was 13.9, today is 5.7, hemoglobin 12, platelets 124,000. Chemistries: Sodium was 112 yesterday, currently is up to 121. BUN of 12, creatinine 1.44, GFR 52, glucose 67, osmolarity 0.242, total bili is 1.3. AST 78, ALT 77. CK was 1177 yesterday, now is 880. Albumin 3.3. Toxicology positive for cocaine. Urine: Trace blood. IMAGING STUDIES: CT head unremarkable for anything acute. IMPRESSION: Syncope versus seizure; however, like a contributing factor may have been the hyponatremia. Does have rhabdomyolysis. RECOMMENDATIONS: Recommend EEG if not done. He can continue his Depakote. I have no problem with that, 500 mg twice per day. I am not sure if he will take it but he is not to drive for six months in any case. Cocaine positive may have also been a culprit in some of his symptoms. His hyponatremia needs to be corrected slowly, avoiding over-correction. Hydration also due to CPK elevation. We will continue current care, watch him for any seizures. I would also watch him for any alcohol withdrawal. I would put him on thiamine, folic acid, multivitamins and if needed start him on Librium. Continue current care. Hopefully discharge planning in the next 24 hours. Awa Moses MD DF/ROBYN , 01:32 PM , 01:49 PM
--- NOTE | 2017-12-02 18:16 | EKG ---
Date Performed: 12/01/2017 Time Performed: 17:24:55 PTAGE: 47 years EKG: SINUS TACHYCARDIA ABNORMAL RHYTHM ECG NO PREVIOUS TRACING DOCTOR: Marcelina Wise Interpretating Date/Time 12/02/2017 18:12:21
[2017-12-03] VITALS (7 sets, daily range): BP systolic 14–118; BP diastolic 62–71; PULSE 67–101; RESP 16–18; TEMP 97.8–98.4; O2SAT 96–97
[2017-12-03 04:28] LABS: AUTOMATED NEUTROPHIL # 3.8 TH/MM3 (1.8-7.7); BASOPHIL % 0.3 % (0.0-2.0); EOSINOPHIL # 0.1 TH/MM3 (0-0.4); EOSINOPHIL % 1.4 % (0.0-4.0); HEMATOCRIT 33.9 % (39.0-51.0); HEMOGLOBIN 11.9 GM/DL (13.0-17.0); LYMPH % 17.7 % (9.0-44.0); MEAN CELL VOLUME 93.2 FL (80.0-100.0); MEAN CORPUSCULAR HEMOGLOBIN 32.8 PG (27.0-34.0); MEAN CORPUSCULAR HGB CONC 35.2 % (32.0-36.0); MEAN PLATELET VOLUME 7.3 FL (7.0-11.0); MONO % 16.1 % (0.0-8.0); MONOCYTE # 0.9 TH/MM3 (0-0.9); NEUT % 64.5 % (16.0-70.0); PLATELET COUNT 122 TH/MM3 (150-450); RED BLOOD COUNT 3.64 MIL/MM3 (4.50-5.90); RED CELL DISTRIBUTION WIDTH 13.9 % (11.6-17.2); WHITE BLOOD COUNT 5.8 TH/MM3 (4.0-11.0)
[2017-12-03 05:01] LABS: BICARBONATE 29.3 MEQ/L (21.0-32.0); CALCIUM 9.2 MG/DL (8.5-10.1); CREATININE 1.24 MG/DL (0.60-1.30)
[2017-12-03] MEDS: THIAMINE HCL 100 MG TAB PO SCH (08:05)
[2017-12-03] MEDS: MULTIVITAMINS/MINERALS THERAPEUTIC TAB PO SCH (08:05)
[2017-12-03] MEDS: DIVALPROEX DR 500 MG TABEC PO SCH (08:05)
[2017-12-03] MEDS: risperiDONE 1 MG TAB PO SCH (08:05)
[2017-12-03] MEDS: DULoxetine HCl DR 60 MG CAP PO SCH (08:05)
[2017-12-03] MEDS: FOLIC ACID 1 MG TAB PO SCH (08:05)
[2017-12-03] MEDS: SODIUM CHLORIDE 0.9% FLUSH 10 ML FLUSH IV FLUSH SCH (08:06)
[2017-12-03] MEDS: DOCUSATE SODIUM 50 MG/SENNA 8.6 MG TAB PO SCH (08:07)
--- NOTE | 2017-12-03 09:25 | HHI.DS ---
Discharge Summary Admission Date Dec 01, 2017 at 19:22 Discharge Date: Dec 03, 2017 Admitting Diagnosis HYPONATREMIA, SYNCOPE, NOÉ (1) Syncope ICD Code: R55 - Syncope and collapse Status: Acute (2) Hyponatremia ICD Code: E87.1 - Hypo-osmolality and hyponatremia Status: Acute (3) Rhabdomyolysis ICD Code: M62.82 - Rhabdomyolysis Status: Acute (4) NOÉ (acute kidney injury) ICD Code: N17.9 - Acute kidney failure, unspecified (5) DM (diabetes mellitus) ICD Code: E11.9 - Type 2 diabetes mellitus without complications (6) Alcohol abuse ICD Code: F10.10 - Alcohol abuse, uncomplicated Procedures none Brief History - From Admission This is a 47-year-old male with a PMH of Hyperlipidemia, DM and Alcohol Abuse was brought here by EMS secondary to apparent syncopal episode. Friends at bedside report patient had sudden onset of syncope earlier today. Friends state patient had been out drinking all night last night. Similar episode approx 2 days ago where pt "was out of it" and noted to have hands clenched. Did not seek medical attention at that time. Denies h/o Seizure, however on Divalproex 500mg bid per review of med list. Does admit to drinking approx 6- 12 beers "maybe more" per day, but denies withdrawal symptoms. On arrival, BP 95/54, HR 112, O2 sat 99% on RA, Temp 99.1. CBC 13.9. Na 112. Creatinine 1.69 no previous labs for comparison. CPK 1177. Troponin negative. INR 1.1. UA negative. CXR with no acute findings. CT Head negative. S/p IVF in ER, no further episodes of syncope/seizure in ER. CBC/BMP: 12/03/17 0411 12/03/17 0411 Significant Findings Laboratory Tests Test 12/01/17 17:32 12/01/17 19:50 12/02/17 00:02 12/02/17 06:57 White Blood Count 13.9 TH/MM3 (4.0-11.0) Red Blood Count 3.99 MIL/MM3 (4.50-5.90) 3.65 MIL/MM3 (4.50-5.90) Hematocrit 36.2 % (39.0-51.0) 33.4 % (39.0-51.0) Mean Corpuscular Hemoglobin Concent 36.1 % (32.0-36.0) Neutrophils (%) (Auto) 81.8 % (16.0-70.0) Lymphocytes (%) (Auto) 7.5 % (9.0-44.0) Monocytes (%) (Auto) 10.2 % (0.0-8.0) 16.2 % (0.0-8.0) Neutrophils # (Auto) 11.4 TH/MM3 (1.8-7.7) Monocytes # (Auto) 1.4 TH/MM3 (0-0.9) Blood Urea Nitrogen 6 MG/DL (7-18) Creatinine 1.69 MG/DL (0.60-1.30) 1.44 MG/DL (0.60-1.30) Calcium Level 8.2 MG/DL (8.5-10.1) 8.0 MG/DL (8.5-10.1) Aspartate Amino Transf (AST/SGOT) 121 U/L (15-37) 78 U/L (15-37) Alanine Aminotransferase (ALT/SGPT) 99 U/L (12-78) Sodium Level 112 MEQ/L (136-145) 117 MEQ/L (136-145) 121 MEQ/L (136-145) Chloride Level 72 MEQ/L (98-107) 81 MEQ/L (98-107) Anion Gap 19 MEQ/L (5-15) Estimat Glomerular Filtration Rate 43 ML/MIN (>89) 52 ML/MIN (>89) Total Creatine Kinase 1177 U/L (39-308) 1040 U/L (39-308) 880 U/L (39-308) Creatine Kinase MB 24.6 NG/ML (0.5-3.6) 19.5 NG/ML (0.5-3.6) 15.6 NG/ML (0.5-3.6) Troponin I LESS THAN 0.02 NG/ML LESS THAN 0.02 NG/ML LESS THAN 0.02 NG/ML Urine Occult Blood TRACE (NEG) Urine Cocaine Screen POS (NEG) Serum Osmolality 242 MOSM/KG (275-295) Hemoglobin 12.0 GM/DL (13.0-17.0) Platelet Count 124 TH/MM3 (150-450) Random Glucose 67 MG/DL (74-106) Albumin 3.3 GM/DL (3.4-5.0) Total Bilirubin 1.3 MG/DL (0.2-1.0) Test 12/02/17 15:27 12/02/17 20:51 12/03/17 04:11 Sodium Level 123 MEQ/L (136-145) 128 MEQ/L (136-145) 131 MEQ/L (136-145) Red Blood Count 3.64 MIL/MM3 (4.50-5.90) Hemoglobin 11.9 GM/DL (13.0-17.0) Hematocrit 33.9 % (39.0-51.0) Platelet Count 122 TH/MM3 (150-450) Monocytes (%) (Auto) 16.1 % (0.0-8.0) Chloride Level 92 MEQ/L (98-107) Estimat Glomerular Filtration Rate 62 ML/MIN (>89) Imaging Last Impressions Chest X-Ray 12/01/17 1722 Signed Impressions: Service Date/Time: Friday, December 01, 2017 17:35 - CONCLUSION: The lungs are clear. John Jenkins MD Head CT 12/01/17 0000 Signed Impressions: Service Date/Time: Friday, December 01, 2017 17:43 - CONCLUSION: 1. No acute intracranial abnormalities. Bong Bradford MD PE at Discharge GENERAL: Middle-aged male in no acute distress. Friends at bedside. HEENT: PERRLA, EOMI. No scleral icterus or conjunctival pallor. No lid lag or facial droop. CARDIOVASCULAR: Regular rate and rhythm. No obvious murmurs to auscultation. No chest tenderness to palpation. RESPIRATORY: No obvious rhonchi or wheezing. Clear to auscultation. Breath sounds equal bilaterally. GASTROINTESTINAL: Abdomen soft, non-tender, nondistended. BS normal. MUSCULOSKELETAL: Extremities without clubbing, cyanosis, or edema. No obvious deformities. NEUROLOGICAL: Awake, alert and oriented x4. No focal neurologic deficits. Moving both upper and lower extremities spontaneously. Pt update on day of discharge In nad. feels better. Eating well. No seizures, no muscle pain or cramps. No n/v /d/c. feels comfortable to go home Hospital Course 47-year-old male with Syncope: vs Seizure. Noted to have syncopal event and questionable seizure- like activity by friends. Denies h/o seizure however on Divalproex per review of medication list. Admit for close monitoring, Seizure Precautions, Ativan prn , Consult Neurology as needed for further recommendations. CT Head w/ no acute findings, images reviewed by me. Ordered Urine Drug Screen....positive for Cocaine, likely contributing to seizure in combination w/ hyponatremia. EEG is normal. Resume Divalproex 500mg bid. Hyponatremia: Na 112 on admission, baseline unknown, h/o chronic alcohol abuse likely contributing to hyponatremia in addition to dehydration. S/p 2L IVF in ER, caution w/ over correction, check repeat Sodium, Serum Osm, Urine Lytes. Repeat NA improved, monitor for overcorrection. Patient is eating well Rhabdomyolysis: CPK 1177, likely secondary to Cocaine. IVF for hydration, repeat CPK for trend. Improved, encouraged PO hydration NOÉ: Creatinine 1.69, no previous labs for comparison, presumably new, likely secondary to dehydration in combination with Cocaine. IVF for hydration, repeat labs in a.m. Alcohol Abuse: Drinks 6-12 beers/day, denies withdrawal symptoms but high risk. CIWA, Seizure Precautions, MVT/Thiamine/Folate. DM2: Hold Metformin for now. Sliding scale w/ Accu-Checks. DVT Prophylaxis: SCD/Teds. Discussed with the patient, nurse Discharge plan: Pending improvement, Na improved. No seizures or tremors. feels better. Patient is eating well. DC home in stable condition to follow up as OP with PCP and consultants. Pt Condition on Discharge: Stable Discharge Disposition: Discharge Home Discharge Time: > 30 minutes Discharge Instructions DIET: Follow Instructions for: Heart Healthy Diet Activities you can perform: Regular-No Restrictions Follow up Referrals: Neurology - 1 Week PCP Follow-up - 1 Week New Medications: Chlordiazepoxide HCl (Chlordiazepoxide HCl) 10 Mg Capsule 10 MG PO DAILY for withdrawals , #6 TAB Folic Acid (Folic Acid) 1 Mg Tablet 1 MG PO DAILY for Nutritional Supplement, #30 TAB Multiple Vitamins W/ Minerals (Thera M Plus) 1 Tab 1 TAB PO DAILY for Nutritional Supplement, #30 TAB Thiamine HCl (Gnp Vitamin B-1) 100 Mg Tab 100 MG PO DAILY for Nutritional Supplement, #30 TAB Continued Medications: Diclofenac (Zorvolex) 35 Mg Cap 75 MG PO DAILY for Pain Management, CAP [address] (Divalproex DR) 500 Mg Tabdr 500 MG PO BID for Control Seizures, #60 TAB [address] (Duloxetine DR) 60 Mg Capdr 60 MG PO DAILY, #30 CAP 0 Refills Fenofibrate (Fenofibrate) 160 Mg Tab 160 MG PO DAILY, #30 TAB 0 Refills Fish Oil-Cholecalciferol (Fish Oil + D3) 1,200-1,000 Mg-Unit Cap 1 CAP PO DAILY for Nutritional Supplement, #30 CAP 0 Refills Lovastatin (Lovastatin) 40 Mg Tab 40 MG PO DAILY for Cholesterol Management, #30 TAB 0 Refills Metformin (Metformin) 1,000 Mg Tab 1000 MG PO BIDPC for Blood Sugar Management, #60 TAB 0 Refills Multivitamin/Iron/Folic Acid (Centrum Complete Multivit Tab) 18 Mg Iron-400 Mcg Tablet Risperidone (Risperidone) 1 Mg Tab 1 MG PO DAILY, #30 TAB 0 Refills Trazodone (Trazodone) 100 Mg Tablet 100 MG PO HS for Control Depression, #30 TAB 0 Refills Cecilia Bowles MD Dec 03, 2017 09:25
[2017-12-03] MEDS ORDERED: CHLO10CA5 PO (09:27)
[2017-12-03] MEDS ORDERED: THERM PO (11:49)
[2017-12-03] MEDS ORDERED: THIA100 PO (11:49)
[2017-12-03] MEDS ORDERED: FOLI1TAB6 PO (11:49)
--- NOTE | 2017-12-03 12:10 | MG ---
cc: Roberth Nation MD EEG NUMBER: [id number] This is a 47-year-old with a history of a syncopal episode. Low amplitude alpha-theta frequencies 10-20 microvolts. Evidence of drowsy stage I sleep in the beginning. Good effort with hyperventilation. Good background EEG variability reactivity during periods of arousal. Reasonable driving with photic stimulation. Single lead EKG is showing sinus rhythm. INTERPRETATION: Normal sleep to brief episodes of awake EEG. Clinical correlation. Roberth Nation MD MG/DL , 12:03 PM , 12:09 PM
== END 2017-12-03 13:03 | disposition home or self-care (01) | DRG 683 ==
LOC: NEPC 16:35 → NEDA 19:22 → NEPGCP 21:19
PROVIDERS: ADMIT Hospitalist; ATTEND Hospitalist
DX: N17.9 Acute kidney failure, unspecified (principal); M62.82 Rhabdomyolysis; E87.1 Hypo-osmolality and hyponatremia; F10.10 Alcohol abuse, uncomplicated; F31.9 Bipolar disorder, unspecified; E86.0 Dehydration; E11.9 Type 2 diabetes mellitus without complications; Z79.84 Long term (current) use of oral hypoglycemic drugs; E78.5 Hyperlipidemia, unspecified; R55 Syncope and collapse; R82.5 Elevated urine levels of drugs, medicaments and biological substances; Z72.0 Tobacco use
CPT/HCPCS: 70450; 71045; 80048; 80053; 80307; 81001; 82436; 82550; 82552; 82948; 83930; 84133; 84295; 84300; 84484; 85025; 85610; 85730; 93005; 95819; 96360; 96361; J7030